=== PATIENT | female | born 1985 | race Caucasian/White ===

== ENCOUNTER → 2016-11-03 | Outpatient (CLI) | payer OTHER ==
[~2016-11-03] MED LIST: BACTRIM DS 8001 TAB PO; CEFDINIR300 MG PO; DESYREL 50MG50 MG PO; DULOXETINE60 MG PO; KLONOPIN0.5 M1 PO; LAMICTAL PO; LORAZEPAM0.5 M1 PO; OXYCODONE5 M1 PO; PHENAZOPYRIDIN200 MG PO; SERTRALINE PO; SUMATRIPTAN SUC50 M1 PO; TRAMADOL 50 MG TAB PO; WELLBUTRIN XL150 M2 PO; ZOFRAN 8MG8 MG PO
== END ==
LOC: LAB 07:17
DX: F34.1 Dysthymic disorder (principal); R10.13 Epigastric pain; G43.009 Migraine without aura, not intractable, without status migrainosus; F51.02 Adjustment insomnia

== ENCOUNTER → 2017-01-03 | Outpatient (CLI) | payer OTHER | LOC: RAD 08:46 | DX: M54.5 Low back pain (principal) ==

== ENCOUNTER → 2017-04-23 | Outpatient (CLI) | payer OTHER ==
[2015-07-05 18:38] VITALS: BP 122/65
== END ==
LOC: LAB 11:13
DX: N30.00 Acute cystitis without hematuria (principal); R50.81 Fever presenting with conditions classified elsewhere; B96.20 Unspecified Escherichia coli [E. coli] as the cause of diseases classified elsewhere

== ENCOUNTER 2017-04-24 15:52 | Observation (INO) | payer OTHER ==
[~2017-04-24] VITALS: Ht 172.7 cm; Wt 79.9 kg
[~2017-04-24 15:52] MED LIST changes: -BACTRIM DS 8001 TAB PO; -CEFDINIR300 MG PO; -DESYREL 50MG50 MG PO; -DULOXETINE60 MG PO; -LORAZEPAM0.5 M1 PO; -OXYCODONE5 M1 PO; -PHENAZOPYRIDIN200 MG PO; -SUMATRIPTAN SUC50 M1 PO; -TRAMADOL 50 MG TAB PO; -WELLBUTRIN XL150 M2 PO; -ZOFRAN 8MG8 MG PO
[2017-04-24] MEDS ORDERED: DULOXETINE60 MG PO (16:02)
[2017-04-24] MEDS ORDERED: SUMATRIPTAN SUC50 M1 PO (16:02)
[2017-04-24] MEDS ORDERED: LORAZEPAM0.5 M1 PO (16:03)
[2017-04-24] MEDS ORDERED: DESYREL 50MG50 MG PO (16:03)
[2017-04-24] MEDS ORDERED: TRAMADOL 50 MG TAB PO (16:03)
[2017-04-24] MEDS ORDERED: WELLBUTRIN XL150 M2 PO (16:03)
[2017-04-24] MEDS ORDERED: BACTRIM DS 8001 TAB PO (16:03)
[2017-04-24] MEDS ORDERED: PHENAZOPYRIDIN200 MG PO (16:03)
[2017-04-24 19:57] VITALS: BP 102/61
[2017-04-24 21:52] VITALS: BP 102/61
[2017-04-24 22:42] VITALS: BP 104/61
[2017-04-25 02:38] VITALS: BP 101/64
[2017-04-25 06:24] VITALS: BP 118/75
[2017-04-25] MEDS ORDERED: CEFDINIR300 MG PO (10:21)
[2017-04-25] MEDS ORDERED: ZOFRAN 8MG8 MG PO (10:21)
[2017-04-25] MEDS ORDERED: OXYCODONE5 M1 PO (10:22)
[2017-04-25 10:44] VITALS: BP 117/75
== END 2017-04-25 11:01 | disposition home or self-care (01) ==
LOC: ED 15:52 → MED/SURG 19:15
PROVIDERS: ADMIT Nurse Practitioner Family
DX: N10 Acute pyelonephritis (principal); R11.0 Nausea
CPT/HCPCS: G0378; J0696; J2405; J7030; J7120

== ENCOUNTER → 2017-05-21 | Outpatient (CLI) | payer OTHER ==
[2017-04-25 10:44] VITALS: BP 117/75
[~2017-05-21] MED LIST changes: +BACTRIM DS 8001 TAB PO; +CEFDINIR300 MG PO; +DESYREL 50MG50 MG PO; +DULOXETINE60 MG PO; +LORAZEPAM0.5 M1 PO; +OXYCODONE5 M1 PO; +PHENAZOPYRIDIN200 MG PO; +SUMATRIPTAN SUC50 M1 PO; +TRAMADOL 50 MG TAB PO; +WELLBUTRIN XL150 M2 PO; +ZOFRAN 8MG8 MG PO
== END ==
LOC: LAB 13:42
DX: R82.99 Other abnormal findings in urine (principal)

== ENCOUNTER → 2017-07-23 | Outpatient (CLI) | payer OTHER | LOC: LAB 16:39 | DX: R10.10 Upper abdominal pain, unspecified (principal); R14.3 Flatulence ==

== ENCOUNTER → 2017-07-24 | Outpatient (CLI) | payer OTHER | LOC: LAB 13:55 | DX: R10.10 Upper abdominal pain, unspecified (principal); R14.3 Flatulence ==

== ENCOUNTER → 2017-07-25 | Outpatient (CLI) | payer OTHER | LOC: RAD 08:13 | DX: K59.00 Constipation, unspecified (principal) | CPT/HCPCS: Q9967 ==

== ENCOUNTER → 2017-11-05 | Outpatient (CLI) | payer OTHER ==
[2017-11-05 15:21] LABS: EOS # 0.1 (0.04-0.40); HEMATOCRIT 40.9 % (37.0-47.0); LYMPH# 1.7 (1.50-4.00); MEAN CELL VOLUME 89 fl (78-100); MEAN CORPUSCULAR HEMOGLOBIN 28 pg (27-31); MEAN CORPUSCULAR HGB CONC 32 g/dL (33-37); MONO # 0.4 (0.20-0.80); NEU # 3.7 (1.40-6.50); PLATELET COUNT 278 K/mm3 (130-400); RED BLOOD COUNT 4.62 M/mm3 (4.10-5.30); RED CELL DISTRIBUTION WIDTH 13.1 % (11.5-14.5); WHITE BLOOD COUNT 5.8 K/mm3 (4.8-10.8)
[2017-11-05 15:40] LABS: ALBUMIN 4.3 g/dL (3.5-5.0); BUN/CREATININE RATIO 19.4 (6.0-26.0); TOTAL BILIRUBIN 0.5 mg/dL (0.2-1.3); TOTAL PROTEIN 7.7 g/dL (6.3-8.2)
== END ==
LOC: LAB 14:58
PROVIDERS: Family Medicine
DX: R10.11 Right upper quadrant pain (principal); Z68.30 Body mass index [BMI] 30.0-30.9, adult

== ENCOUNTER → 2017-12-28 | Outpatient (CLI) | payer OTHER ==
[2017-12-28 08:34] LABS: EOS # 0.1 (0.04-0.40); EOS % 1.7 % (1.0-5.0); HEMOGLOBIN 12.7 g/dL (12.5-16.0); LYMPH# 1.8 (1.50-4.00); MEAN CELL VOLUME 88 fl (78-100); MEAN CORPUSCULAR HEMOGLOBIN 29 pg (27-31); MEAN CORPUSCULAR HGB CONC 33 g/dL (33-37); MEAN PLATELET VOLUME 9.2 fl (7.4-10.4); MONO # 0.4 (0.20-0.80); NEU # 3.1 (1.40-6.50); PLATELET COUNT 274 K/mm3 (130-400); RED BLOOD COUNT 4.32 M/mm3 (4.10-5.30); RED CELL DISTRIBUTION WIDTH 12.9 % (11.5-14.5); WHITE BLOOD COUNT 5.4 K/mm3 (4.8-10.8)
[2017-12-28 08:51] LABS: BUN/CREATININE RATIO 16.5 (6.0-26.0); CALCIUM 8.8 mg/dL (8.4-10.2); POTASSIUM 3.9 mmol/L (3.6-5.0); TOTAL BILIRUBIN 0.3 mg/dL (0.2-1.3); TOTAL PROTEIN 7.3 g/dL (6.3-8.2)
== END ==
LOC: LAB 08:25
PROVIDERS: Family Medicine
DX: Z00.00 Encounter for general adult medical examination without abnormal findings (principal); Z88.5 Allergy status to narcotic agent

== ENCOUNTER → 2018-01-21 | Outpatient (CLI) | payer OTHER ==
[2018-01-21 10:31] LABS: EOS # 0.1 (0.04-0.40); EOS % 1.3 % (1.0-5.0); HEMATOCRIT 44.2 % (37.0-47.0); HEMOGLOBIN 14.5 g/dL (12.5-16.0); LYMPH# 2.1 (1.50-4.00); MEAN CELL VOLUME 88 fl (78-100); MEAN CORPUSCULAR HEMOGLOBIN 29 pg (27-31); MEAN CORPUSCULAR HGB CONC 33 g/dL (33-37); MEAN PLATELET VOLUME 10.1 fl (7.4-10.4); MONO # 0.5 (0.20-0.80); NEU # 4.3 (1.40-6.50); PLATELET COUNT 338 K/mm3 (130-400); RED BLOOD COUNT 5.05 M/mm3 (4.10-5.30)
[2018-01-21 10:39] LABS: ALBUMIN 4.5 g/dL (3.5-5.0); BUN/CREATININE RATIO 16.4 (6.0-26.0); CALCIUM 9.7 mg/dL (8.4-10.2); POTASSIUM 4.5 mmol/L (3.6-5.0); TOTAL BILIRUBIN 0.3 mg/dL (0.2-1.3); TOTAL PROTEIN 8.5 g/dL (6.3-8.2)
[2018-01-21 11:25] LABS: PH-URINE 6.5 (5.0 - 8.0); URINE APPEARANCE HAZY; URINE BILIRUBIN NEGATIVE (NEGATIVE); URINE BLOOD NEGATIVE (NEGATIVE); URINE COLOR YELLOW; URINE GLUCOSE NEGATIVE (NEGATIVE); URINE KETONE NEGATIVE (NEGATIVE); URINE LEUKOCYTE ESTERASE TRACE (NEGATIVE); URINE NITRATE NEGATIVE (NEGATIVE); URINE PROTEIN(semi-quant) TRACE mg/dL (NEGATIVE); URINE UROBILINOGEN NORMAL (NORMAL)
[2018-01-21 11:26] LABS: URINE MUCUS PRESENT (NOT PRESENT)
[2018-01-22 00:12] LABS: HEPATITIS C ANTIBODY Negative (())
== END ==
LOC: LAB 09:42
PROVIDERS: Family Medicine
DX: R11.0 Nausea (principal); R74.0 Nonspecific elevation of levels of transaminase and lactic acid dehydrogenase [LDH]

== ENCOUNTER → 2018-05-27 | Outpatient (CLI) | payer OTHER ==
[2018-05-27 13:51] LABS: EOS # 0.1 (0.04-0.40); HEMATOCRIT 40.5 % (37.0-47.0); HEMOGLOBIN 13.5 g/dL (12.5-16.0); LYMPH# 2.1 (1.50-4.00); MEAN CELL VOLUME 87 fl (78-100); MEAN CORPUSCULAR HEMOGLOBIN 29 pg (27-31); MEAN CORPUSCULAR HGB CONC 33 g/dL (33-37); MEAN PLATELET VOLUME 9.6 fl (7.4-10.4); MONO # 0.4 (0.20-0.80); NEU # 3.6 (1.40-6.50); PLATELET COUNT 303 K/mm3 (130-400); RED BLOOD COUNT 4.64 M/mm3 (4.10-5.30); RED CELL DISTRIBUTION WIDTH 12.9 % (11.5-14.5); WHITE BLOOD COUNT 6.3 K/mm3 (4.8-10.8)
[2018-05-27 14:07] LABS: ALBUMIN 4.5 g/dL (3.5-5.0); BUN/CREATININE RATIO 13.3 (6.0-26.0); CALCIUM 9.2 mg/dL (8.4-10.2); POTASSIUM 4.2 mmol/L (3.6-5.0); TOTAL BILIRUBIN 0.4 mg/dL (0.2-1.3)
== END ==
LOC: RAD 13:35
PROVIDERS: Family Medicine
DX: R10.13 Epigastric pain (principal); G89.29 Other chronic pain; N27.0 Small kidney, unilateral; Z90.49 Acquired absence of other specified parts of digestive tract; R74.0 Nonspecific elevation of levels of transaminase and lactic acid dehydrogenase [LDH]

== ENCOUNTER → 2018-06-08 | Outpatient (CLI) | payer OTHER | LOC: RAD 14:32 | DX: S93.601A Unspecified sprain of right foot, initial encounter (principal) ==

== ENCOUNTER → 2018-07-15 | Outpatient (CLI) | payer OTHER | LOC: RAD 10:00 | DX: M25.571 Pain in right ankle and joints of right foot (principal) ==

== ENCOUNTER 2018-09-05 09:00 | Outpatient (RCR) | payer OTHER | END 2018-09-05 09:30 | disposition home or self-care (01) | LOC: PT 09:00 | DX: Z47.89 Encounter for other orthopedic aftercare (principal) ==

== ENCOUNTER → 2018-11-27 | Outpatient (CLI) | payer OTHER ==
[2018-11-27 14:10] LABS: EOS % 0.5 % (1.0-5.0); HEMATOCRIT 38.8 % (37.0-47.0); HEMOGLOBIN 12.8 g/dL (12.5-16.0); MEAN CELL VOLUME 88 fl (78-100); MEAN CORPUSCULAR HEMOGLOBIN 29 pg (27-31); MEAN CORPUSCULAR HGB CONC 33 g/dL (33-37); MEAN PLATELET VOLUME 9.5 fl (7.4-10.4); MONO # 0.4 (0.20-0.80); NEU # 3.2 (1.40-6.50); PLATELET COUNT 282 K/mm3 (130-400); RED BLOOD COUNT 4.41 M/mm3 (4.10-5.30); RED CELL DISTRIBUTION WIDTH 12.5 % (11.5-14.5); WHITE BLOOD COUNT 5.6 K/mm3 (4.8-10.8)
== END ==
LOC: LAB 13:43
PROVIDERS: Family Medicine
DX: R53.83 Other fatigue (principal)

== ENCOUNTER → 2018-12-17 | Outpatient (CLI) | payer OTHER ==
[2018-12-17 14:47] LABS: HEMATOCRIT 36.9 % (37.0-47.0); HEMOGLOBIN 12.2 g/dL (12.5-16.0); LYMPH# 1.7 (1.50-4.00); MEAN CELL VOLUME 88 fl (78-100); MEAN CORPUSCULAR HEMOGLOBIN 29 pg (27-31); MEAN CORPUSCULAR HGB CONC 33 g/dL (33-37); MEAN PLATELET VOLUME 10.1 fl (7.4-10.4); MONO # 0.3 (0.20-0.80); NEU # 3.6 (1.40-6.50); PLATELET COUNT 268 K/mm3 (130-400); RED BLOOD COUNT 4.19 M/mm3 (4.10-5.30); WHITE BLOOD COUNT 5.5 K/mm3 (4.8-10.8)
[2018-12-17 14:53] LABS: ALBUMIN 4.4 g/dL (3.5-5.0); CALCIUM 9.3 mg/dL (8.4-10.2); POTASSIUM 4.3 mmol/L (3.6-5.0); TOTAL BILIRUBIN 0.4 mg/dL (0.2-1.3); TOTAL PROTEIN 7.5 g/dL (6.3-8.2)
== END ==
LOC: LAB 12:54
PROVIDERS: Family Medicine
DX: R53.83 Other fatigue (principal)

== ENCOUNTER → 2018-12-30 | Outpatient (CLI) | payer OTHER ==
[2018-12-31 21:48] LABS: C-REACTIVE PROTEIN XXX
[2019-01-02 01:58] LABS: ANA SCREEN with REFLEX Negative (Negative)
== END ==
LOC: LAB 12:49
PROVIDERS: Family Medicine
DX: R53.83 Other fatigue (principal)

== ENCOUNTER → 2019-01-09 | Outpatient (CLI) | payer OTHER ==
[2019-01-09 14:11] LABS: ALBUMIN 4.5 g/dL (3.5-5.0); CALCIUM 9.5 mg/dL (8.4-10.2); POTASSIUM 4.1 mmol/L (3.6-5.0); TOTAL BILIRUBIN 0.4 mg/dL (0.2-1.3); TOTAL PROTEIN 8.1 g/dL (6.3-8.2)
== END ==
LOC: LAB 10:46
PROVIDERS: Physician Assistant
DX: R10.13 Epigastric pain (principal)

== ENCOUNTER → 2019-01-27 | Outpatient (CLI) | payer OTHER | LOC: RAD 12:26 | DX: M25.471 Effusion, right ankle (principal) ==